=== PATIENT | female | born 1960 | race Caucasian/White ===

== ENCOUNTER 2020-08-06 16:54 | Outpatient (REF) | payer MEDICARE, SELFPAY | END 2020-08-06 16:55 | disposition home or self-care (01) | LOC: HO.LAB 16:54 | PROVIDERS: Visit Provider Internal Medicine | DX: Z20.828 Contact with and (suspected) exposure to other viral communicable diseases (principal) | CPT/HCPCS: C9803; U0003 ==

== ENCOUNTER 2021-11-05 10:44 | Outpatient (REF) | payer MEDICARE, SELFPAY ==
[2021-11-05 11:17] LABS: Hematocrit 34.1 % (37.0-47.0); Hemoglobin 10.3 g/dl (12.0-16.0); Mean Corpuscular HGB Conc 30.2 g/dl (31.0-35.0); Mean Corpuscular Hemoglobin 24.7 pg (27.0-33.0); Mean Corpuscular Volume 81.8 fL (80.0-98.0); Mean Platelet Volume 9.9 fL (9.4-12.3); Platelet Count 486 X10*3/uL (160-400); Red Blood Count 4.17 X10*6/uL (4.20-5.50); Red Cell Distribution Width 18.1 % (11.0-16.0); White Blood Count 9.2 X10*3/uL (4.8-10.8)
[2021-11-05 11:44] LABS: Rheumatoid Factor < 15.0 IU/mL (<15.0)
[2021-11-05 12:13] LABS: Erythrocyte Sedimentation Rate 25 MM/HR (0-20)
[2021-11-09 15:03] LABS: Anti Nuclear Antibody Screen NEGATIVE (NEGATIVE)
[2021-11-09 17:51] LABS: Angiotensin Converting Enzyme 46 U/L (9-67)
[2021-11-10 17:56] LABS: Treponema pallidum Ab FTA ABS Nonreactive (Nonreactive)
== END 2021-11-05 10:45 | disposition home or self-care (01) ==
LOC: HO.LAB 10:44
PROVIDERS: PCP Family Medicine; Visit Provider Ophthalmology
DX: H20.9 Unspecified iridocyclitis (principal)
CPT/HCPCS: 36415; 82164; 85027; 85652; 86038; 86039; 86140; 86431; 86780

== ENCOUNTER 2025-06-10 15:07 | Outpatient (AMB) | payer MEDICARE, SELFPAY | END 2025-06-10 15:13 | disposition home or self-care (01) | LOC: HO.HMGAL 15:07 | PROVIDERS: PCP Family Medicine; Visit Provider Registered Nurse Emergency | DX: J30.89 Other allergic rhinitis (principal) | CPT/HCPCS: 95117; 95165 ==

== ENCOUNTER 2025-07-15 09:58 | Outpatient (AMB) | payer MEDICARE, SELFPAY ==
--- OUTSIDE RECORDS SUMMARY | 2025-07-15 11:41 | XMS_ITS | Clinical Summary ---
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 Role Phone Brennen Mojica MD Primary Care Provider [phone] Allergies Active Allergy Reactions Criticality Noted Date Comments Bacitracin 03/21/2023 Latex 03/21/2023 Medications No known medications Active Problems No known active problems Social History Tobacco Use Types Packs/Day Years Used Date Smoking Tobacco: Never Assessed Sex and Gender Information Value Date Recorded Sex Assigned at Female 02/24/2023 12:10 PM EDT Gender Identity Not on file Sexual Orientation Not on file Job Start Date Occupation Industry Not on file Not on file Not on file Last Filed Vital Signs Vital Sign Reading Time Taken Comments Blood Pressure 116/55 03/21/2023 11:37 AM EDT Pulse 80 03/21/2023 11:37 AM EDT Temperature 37.1 C (98.7 F) 03/21/2023 11:37 AM EDT Respiratory Rate - - Oxygen Saturation 98% 03/21/2023 11:37 AM EDT Inhaled Oxygen Concentration - - Weight 69.4 kg (153 lb) 03/21/2023 11:37 AM EDT Height 160 cm (5' 3 ) 03/21/2023 11:37 AM EDT Body Mass Index 27.1 03/21/2023 11:37 AM EDT Plan of Treatment Health Maintenance Due Date Last Done Comments Hepatitis C Screening 1960 COVID-19 Vaccine (#1) 06/15/1960 Depression Screening 1971 Preventative Health Evaluation 12/13/1977 DTap / Tdap / Td (1 - Tdap) 12/13/1978 Cervical Cancer Screening (Pap Smear) 12/13/1980 Colon Cancer Screening (Colonoscopy) 12/13/2004 Breast Cancer Screening (Mammogram) 12/13/2009 Shingrix-Zoster Vaccine (1 o f 2) 12/13/2009 Fall Risk Assessment 12/13/2024 Osteoporosis Screening (DEXA Scan) 12/13/2024 Pneumococcal Vaccine (1 of 1 - PCV) 12/13/2024 Influenza Vaccine (#1) 2025 , 07/31/2020, 06/04/2019 RSV Adult > 60+ Yrs or (1 - 1-dose 75+ series) 12/13/2034 Hepatitis B Vaccines Aged Out No long er eligible based on patient's age to complete this topic Pneumococcal Vaccine Aged Out No long er eligible based on patient's age to complete this topic RSV Ped < 20 months Aged Out No longe r eligible based on patient's age to complete this topic Care Teams Stained Glass Painter Relationship Specialty Start Date End Date Brennen Mojica MD [address] [place] [address] PCP - General Family Medicine 02/24/23
--- OUTSIDE RECORDS SUMMARY | 2025-07-15 11:41 | XMS_ITS | Clinical Summary ---
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 Active albuterol HFA (PROAIR HFA ; PROVENTIL HFA ; VENTOLIN HFA) 90 mcg/actuation inhaler Inhale 2 Puffs into the lungs every 4 hours as needed. Active Trelegy Ellipta 200-62.5-25 mcg inhaler Inhale 1 puff (200 mcg total) by mouth 1 (one) time each day. 4 Active loratadine (CLARITIN) 10 mg tablet Take 1 tablet (10 mg total) by mouth 1 (one) time each day. Active omeprazole (PriLOSEC) [address] capsule TAKE 1 CAPSULE BY MOUTH TWO TIMES A DAY FOR 30 DAYS Active sucralfate (CARAFATE) 1 gram tablet TAKE 1 TABLET BY MOUTH THREE TIMES A DAY WITH MEALS AND AT BEDTIME. MAKE SLURRY BY MIXING 1 TABLET AND 1 TABLESPOON OF WATER, LET STAND FOR 15 MINUTES 4 Active CYANOCOBALAMIN, VITAMIN B-12, ORAL Take by mouth. Activ e VITAMIN A ORAL Take by mouth. Active biotin 5 mg capsule Take by mouth. Activ e cefdinir (OMNICEF) 300 mg capsule Take 300 mg by mouth 2 times daily. Active cholecalciferol (VITAMIN D-3) 25 mcg (1,000 unit) capsule Take by mouth. A ctive doxepin (SINEquan) 25 mg capsule Take 25 mg by mouth at bedtime. Active ferrous sulfate 325 mg (65 mg elemental iron) tablet Take 325 mg by mouth daily. Active flaxseed oiL 1,000 mg capsule Take by mouth. Activ e fluticasone propion-salmete roL (ADVAIR DISKUS) 500-50 mcg/dose diskus inhaler Inhale 1 Puff into the lungs every 12 hours. Active folic acid (FOLVITE) 1 mg tablet Take 1 mg by mouth daily. Active levocetirizine (XYZAL) 5 mg tablet Take 5 mg by mouth every evening. Active oxyBUTYnin XL (DITROPAN-XL) 10 mg 24 hr tablet Take 10 mg by mouth daily. Active umeclidinium (Incruse Ellipta) 62.5 mcg/actuation inhalation Inhale into the lungs. Active zafirlukast (ACCOLATE) 20 mg tablet Take 20 mg by mouth 2 times daily. Active Active Problems Problem Noted Date Diagnosed Date History of DVT of lower extremity 08/10/2024 Social History Tobacco Use Types Packs/Day Years Used Date Smoking Tobacco: Never Assessed Comments Unknown Sex and Gender Information Value Date Recorded Sex Assigned at Not on file Legal Sex Female 11:08 AM EST Gender Identity Not on file Sexual Orientation Not on file Obstetrics History Last Filed Vital Signs Vital Sign Reading Time Taken Comments Blood Pressure 109/63 10/02/2024 2:21 PM EST Pulse 86 10/02/2024 2:21 PM EST Temperature 36.6 C (97.9 F) 10/02/2024 2:21 PM EST Respiratory Rate - - Oxygen Saturation 100% 10/02/2024 2:21 PM EST Inhaled Oxygen Concentration - - Weight 66.2 kg (146 lb) 10/02/2024 2:21 PM EST Height 160 cm (5' 3 ) 03/21/2023 11:37 AM EDT Body Mass Index 25.86 03/21/2023 11:37 AM EDT Plan of Treatment Health Maintenance Due Date Last Done Comments Breast Cancer Screening 1959 Colorectal Cancer Screening: Colonoscopy 1960 DTaP,Tdap,and Td Vaccines (1 - Tdap) 12/13/1978 Hepatitis A Vaccines (1 of 2 - Risk 2-dose series) 12/13/1978 Pneumococcal Vaccine: 50+ Years (1 of 2 - PCV) 12/13/1978 Cervical Cancer Screening: Pap Smear 12/13/1980 RSV Immunization Adult Patients (1 - Risk 50-74 years 1-dose series) 12/13/2009 Zoster Vaccines (1 of 2) 12/13/2009 Hepatitis B Vaccines (1 of 3 - Risk 3-dose series) 2019 Cholesterol Screening (Lipid Panel) 10/18/2023 Hepatitis C Screening 10/18/2023 Medicare Annual Wellness Visit 10/18/2023 Osteoporosis Screening (Bone Density Screening) 10/18/2023 Social Influencers of Health Screening 10/18/2023 Depression Screening 09/19/2024 Falls Risk Assessment 12/13/2024 COVID-19 Vaccine ( season) 2025 08/21/2021, 02/13/2021, 01/16/2021 Influenza Vaccine (#1) 2025 , 07/27/2021, 07/31/2020, Additional history exists HIB Vaccines Aged Out No longer eligi ble based on patient's age to complete this topic HPV Vaccines Aged Out No longer eligi ble based on patient's age to complete this topic IPV Vaccines Aged Out No longer eligi ble based on patient's age to complete this topic MMR Vaccines Aged Out No longer eligi ble based on patient's age to complete this topic Meningococcal ACWY Vaccine Aged Out N o longer eligible based on patient's age to complete this topic Meningococcal B Vaccine Aged Out No l onger eligible based on patient's age to complete this topic RSV Immunization Patients Under 20 months Aged Out No longer eligible based on patient's age to complete this topic Varicella Vaccines Aged Out No longer eligible based on patient's age to complete this topic Insurance MEDICARE [facility] Care Teams Counting Machine Operator Relationship Specialty Start Date End Date Brennen Mojica DO [address], [place] PCP - General 01/26/11
== END 2025-07-15 09:59 | disposition home or self-care (01) ==
LOC: HO.HMGAL 09:58
PROVIDERS: PCP Family Medicine; Visit Provider Registered Nurse Emergency
DX: J30.89 Other allergic rhinitis (principal)
CPT/HCPCS: 95117; 95165